=== PATIENT | female | born 1955 | race Caucasian/White ===

== ENCOUNTER → 2021-07-22 | Day surgery (SDC) | payer BC ==
[~2021-07-22] MED LIST: ASPIRIN81 MG PO; BALANCED SALT SOLN (OPTH) 15 ML BTL IO ONE; FLONASE ALLERG9.9 ML INH; HYDROXYZINE PAM25 MG PO; LIDOCAINE 2%/ EPINEPHRINE 20ML MDV ONE; NEOMYCIN/POLYMYXIN/DEX (OPTH) 3.5 GM TUBE ONE; PAROXETINE HCL20 MG PO; POVIDONE IODINE 0.05% 0.05 % ML PO ONE; PROPOFOL IV EMULSION 10 MG/ML 20 ML VIAL ONE; XANAX1 MG PO
[2021-07-22 15:30] VITALS: BP 105/70
== END | disposition home or self-care (01) ==
LOC: OR 12:49
PROVIDERS: ATTEND Ophthalmology
DX: H02.834 Dermatochalasis of left upper eyelid (principal); H02.831 Dermatochalasis of right upper eyelid; E78.5 Hyperlipidemia, unspecified; K76.0 Fatty (change of) liver, not elsewhere classified; F41.0 Panic disorder [episodic paroxysmal anxiety]; F32.A Depression, unspecified; F17.210 Nicotine dependence, cigarettes, uncomplicated; Z88.6 Allergy status to analgesic agent; Z01.812 Encounter for preprocedural laboratory examination; Z20.822 Contact with and (suspected) exposure to COVID-19; Z79.82 Long term (current) use of aspirin; Z79.899 Other long term (current) drug therapy; Z86.73 Personal history of transient ischemic attack (TIA), and cerebral infarction without residual deficits
CPT/HCPCS: 15823; J2001; J2704; U0002